=== PATIENT | female | born 1980 | race American Indian/Alaskan Native ===

== ENCOUNTER 2019-05-26 12:54 | Emergency (ER) | payer MEDICAID ==
[2019-05-26 13:01] VITALS: BP 139/92
--- NOTE | 2019-05-26 15:39 | Event Note ---
ED Screening Note Date of service: 05/26/19 Time: 15:37 ED Screening Note: 39 y o f with pmh of lupus presents with pain in throat and painful swelling with fever and lupus flare up This initial assessment/diagnostic orders/clinical plan/treatment(s) is/are subject to change based on patients health status, clinical progression and re- assessment by fellow clinical providers in the ED. Further treatment and workup at subsequent clinical providers discretion. Patient/guardian urged not to elope from the ED as their condition may be serious if not clinically assessed and managed. Initial orders include: rapid strep labs acc evAL
[2019-05-26 16:27] LABS: Basophils % (Auto) 0.3 % (0.0-1.8); Eosinophils # (Auto) 0.2 K/mm3 (0.0-0.4); Eosinophils % (Auto) 2.3 % (0.0-4.3); Hematocrit 32.5 % (30.3-42.9); Hemoglobin 10.6 gm/dl (10.1-14.3); Lymphocytes # (Auto) 2.1 K/mm3 (1.2-5.4); Lymphocytes % (Auto) 24.9 % (13.4-35.0); Mean Corpuscular HGB Conc 33 % (30-34); Mean Corpuscular Volume 77 fl (79-97); Monocytes # (Auto) 0.5 K/mm3 (0.0-0.8); Monocytes % (Auto) 6.1 % (0.0-7.3); Platelet Count 394 K/mm3 (140-440); Red Blood Count 4.22 M/mm3 (3.65-5.03); Red Cell Distribution Width 16.3 % (13.2-15.2)
[2019-05-26] MEDS ORDERED: methylPREDNISolone Sod Succinate 125 MG/2 ML INJ IV ONE (16:29)
[2019-05-26] MEDS ORDERED: FUROSEMIDE 40 MG/4 ML INJ IV ONE (16:29)
[2019-05-26] MEDS ORDERED: LIDOCAINE VISCOUS 2% 15 ML ORAL LIQD PO ONE (16:30)
[2019-05-26 16:51] LABS: BUN/Creatinine Ratio 10; Blood Urea Nitrogen 8 mg/dL (7-17); Calcium 9.4 mg/dL (8.4-10.2); Hemolysis Index 10
--- NOTE | 2019-05-26 16:53 | Emergency Department Report ---
ED ENT HPI - General Chief complaint: Sore Throat Stated complaint: SORE THROAT/LUPUS/STAR Time Seen by Provider: 05/26/19 16:26 Source: patient Mode of arrival: Ambulatory Limitations: No Limitations - History of Present Illness Initial comments: Is a pleasant 39-year-old female who presents the emergency department with a chief complaint of "I think I have strep throat." She has a past medical history of lupus and lymphedema and reports she was unable to take her medications including her torsemide today. She has noticed some swelling to both legs. She denies any chest pain, shortness of breath, chills, nausea, vomiting, diarrhea. She does report she has had a subjective fever. She reports she has had strep throat in the past and this required an epinephrine injection due to swelling in her throat from her lymphedema. She states she is not having difficulty breathing and is able to tolerate her own secretions and is drinking soda at bedside synthesis is difficult. MD complaint: sore throat - Related Data Previous Rx's Medication Instructions Recorded Last Taken Type Amoxicillin [Trimox CAP] 500 mg PO BID #20 capsule 05/26/19 Unknown Rx Nystas/Diphen/Xyl Visc/Mylanta 30 ml MM Q4H PRN #90 ml 05/26/19 Unknown Rx [Magic Mouthwash] methylPREDNISolone [Medrol 4MG 4 mg PO ONCE #1 tab.ds.pk 05/26/19 Unknown Rx DOSEPAK (21 tabs)] Allergies Allergy/AdvReac Type Severity Reaction Status Date / Time No Known Allergies Allergy Verified 05/26/19 16:43 ED Dental HPI - General Chief complaint: Sore Throat Stated complaint: SORE THROAT/LUPUS/STAR Time Seen by Provider: 05/26/19 16:26 Source: patient Mode of arrival: Ambulatory Limitations: No Limitations - Related Data Previous Rx's Medication Instructions Recorded Last Taken Type Amoxicillin [Trimox CAP] 500 mg PO BID #20 capsule 05/26/19 Unknown Rx Nystas/Diphen/Xyl Visc/Mylanta 30 ml MM Q4H PRN #90 ml 05/26/19 Unknown Rx [Magic Mouthwash] methylPREDNISolone [Medrol 4MG 4 mg PO ONCE #1 tab.ds.pk 05/26/19 Unknown Rx DOSEPAK (21 tabs)] Allergies Allergy/AdvReac Type Severity Reaction Status Date / Time No Known Allergies Allergy Verified 05/26/19 16:43 ED Review of Systems ROS: Stated complaint: SORE THROAT/LUPUS/STAR Other details as noted in HPI Comment: All other systems reviewed and negative Constitutional: denies: chills, fever Eyes: denies: eye pain, eye discharge, vision change ENT: as per HPI, throat pain. denies: ear pain Respiratory: denies: cough, shortness of breath, wheezing Cardiovascular: denies: chest pain, palpitations Endocrine: no symptoms reported Gastrointestinal: denies: abdominal pain, nausea, diarrhea Genitourinary: denies: urgency, dysuria, discharge Musculoskeletal: denies: back pain, joint swelling, arthralgia Skin: denies: rash, lesions Neurological: denies: headache, weakness, paresthesias Psychiatric: denies: anxiety, depression Hematological/Lymphatic: denies: easy bleeding, easy bruising ED Past Medical Hx - Past Medical History Previous Medical History?: Yes Additional medical history: Lupus, lymphodema - Surgical History Past Surgical History?: Yes Additional Surgical History: C section. Hernia repair - Social History Smoking Status: Never Smoker Substance Use Type: None - Medications Home Medications: Home Medications Medication Instructions Recorded Confirmed Last Taken Type Amoxicillin [Trimox CAP] 500 mg PO BID #20 capsule 05/26/19 Unknown Rx Nystas/Diphen/Xyl Visc/Mylanta 30 ml MM Q4H PRN #90 ml 05/26/19 Unknown Rx [Magic Mouthwash] methylPREDNISolone [Medrol 4MG 4 mg PO ONCE #1 tab.ds.pk 05/26/19 Unknown Rx DOSEPAK (21 tabs)] ED Physical Exam - General Limitations: No Limitations General appearance: alert, in no apparent distress - Head Head exam: Present: atraumatic, normocephalic - Eye Eye exam: Present: normal appearance, PERRL, EOMI Pupils: Present: normal accommodation - ENT ENT exam: Present: normal exam, mucous membranes moist. Absent: normal orophraynx (mild erythema in the posterior pharynx with some mild tonsillar enlargement. No peritonsillar bulging, retropharyngeal bulging or tongue elevation. No dysphonia or drooling. Drinking a bottle of Sprite at the bedside.) - Neck Neck exam: Present: normal inspection, full ROM. Absent: tenderness, meningismus - Respiratory Respiratory exam: Present: normal lung sounds bilaterally. Absent: respiratory distress, wheezes, rales, rhonchi, stridor - Cardiovascular Cardiovascular Exam: Present: regular rate, normal rhythm, normal heart sounds. Absent: systolic murmur, diastolic murmur, rubs, gallop - GI/Abdominal GI/Abdominal exam: Present: soft, normal bowel sounds. Absent: distended, tenderness, guarding, rebound, rigid - Extremities Exam Extremities exam: Present: normal inspection, full ROM, normal capillary refill, pedal edema (trace pedal edema, no pitting edema.). Absent: tenderness, calf t enderness (negative Homans sign bilaterally.) - Back Exam Back exam: Present: normal inspection - Neurological Exam Neurological exam: Present: alert, oriented X3 - Psychiatric Psychiatric exam: Present: normal affect, normal mood - Skin Skin exam: Present: warm, dry, intact, normal color. Absent: rash ED Course Vital Signs 05/26/19 13:00 Temperature 98.9 F Pulse Rate 93 H Respiratory 16 Rate Blood Pressure 139/92 O2 Sat by Pulse 96 Oximetry - Reevaluation(s) Reevaluation #1: 05/26/19 18:56 Patient was given IV steroids and IV Lasix and felt much better. She has been urinating a lot and reports that the swelling has improved significantly. On my reevaluation she was eating and drinking at the bedside stated she felt much muc h better. She wanted to go home. ED Medical Decision Making - Lab Data Result diagrams: 05/26/19 16:07 05/26/19 16:07 - Medical Decision Making Patient present in the emergency department with sore throat and sensation of swelling in her throat. She has had similar symptoms in the past secondary to h er lymphedema. She reports she had not been able to take her medication today due to this throat pain. She was given a dose of Lasix IV as well as IV steroids and reported significant relief in her symptoms. She at no point had any oropharyngeal swelling, airway compromise, stridor, increased work of breathing, or any other symptoms that would indicate anaphylaxis or angioedema. She does have a history of lymphedema and reports this feels similar. She felt much better and was observed in the ER for a few hours and felt that her symptoms had improved significantly. I will discharge her in stable condition with Medrol Dosepak, Magic mouthwash and antibiotics for suspected tonsillitis. She is instructed to follow-up with her primary care doctor tomorrow or return to the ER with any changing or worsening symptoms. - Differential Diagnosis tonsillitis, pharyngitis, allergic reaction Critical care attestation.: If time is entered above; I have spent that time in minutes in the direct care of this critically ill patient, excluding procedure time. ED Disposition Clinical Impression: Acute tonsillitis Qualifiers: Pharyngitis/tonsillitis etiology: unspecified etiology Qualified Code(s): J03.90 - Acute tonsillitis, unspecified Disposition: TO HOME OR SELFCARE Is pt being admited?: No Condition: Stable Instructions: Tonsillitis (ED) Prescriptions: Nystas/Diphen/Xyl Visc/Mylanta [Magic Mouthwash] 30 ml MM Q4H PRN #90 ml PRN Reason: Pain , Severe (7-10) methylPREDNISolone [Medrol 4MG DOSEPAK (21 tabs)] 4 mg PO ONCE #1 tab.ds.pk Amoxicillin [Trimox CAP] 500 mg PO BID #20 capsule Referrals: PATRICK NGUYEN MD [Primary Care Provider] - 3-5 Days Forms: Work/School Release Form(ED) Time of Disposition: 19:01
== END 2019-05-26 19:14 | disposition home or self-care (01) ==
LOC: ED 12:54
DX: J03.90 Acute tonsillitis, unspecified (principal); Z98.890 Other specified postprocedural states; Z79.2 Long term (current) use of antibiotics; Z79.899 Other long term (current) drug therapy
CPT/HCPCS: 36415; 80048; 85025; 87116; 87430; 96374; 96375; 99284; J1940; J2930

== ENCOUNTER 2021-05-11 19:24 | Emergency (ER) | payer OTHER ==
[2021-05-11] MEDS ORDERED: IPRATROPIUM 0.02% NEBU 2.5 ML IH ONE (19:56)
[2021-05-11] MEDS ORDERED: ALBUTEROL 2.5 MG/3 ML NEBU IH ONE ×2 (19:56→23:22)
[2021-05-11] MEDS ORDERED: methylPREDNISolone ACETATE 80 MG/1 ML INJ IM ONE (19:56)
--- NOTE | 2021-05-11 20:01 | Emergency Department Report ---
<TAD PACE S - Last Filed: 05/12/21 01:22> ED Shortness of Breath HPI - General Chief Complaint: Dyspnea/Respdistress Stated Complaint: STAR Time Seen by Provider: 05/11/21 19:37 - Related Data Previous Rx's Medication Instructions Recorded Last Taken Type Nystas/Diphen/Xyl Visc/Mylanta 30 ml MM Q4H PRN #90 ml 05/26/19 Unknown Rx [Magic Mouthwash] methylPREDNISolone [Medrol 4MG 4 mg PO ONCE #1 tab.ds.pk 05/11/21 Unknown Rx DOSEPAK (21 tabs)] Albuterol Mdi (or & Nicu Only) 2 puff IH QID PRN #8.5 gram 05/12/21 Unknown Rx [ProAir HFA Inhaler] Amoxicillin/Potassium Clav 1 each PO BID #14 tab 05/12/21 Unknown Rx [Augmentin 875-125 Tablet] Allergies Allergy/AdvReac Type Severity Reaction Status Date / Time No Known Allergies Allergy Verified 05/26/19 16:43 ED Past Medical Hx - Medications Home Medications: Home Medications Medication Instructions Recorded Confirmed Last Taken Type Nystas/Diphen/Xyl Visc/Mylanta 30 ml MM Q4H PRN #90 ml 05/26/19 Unknown Rx [Magic Mouthwash] methylPREDNISolone [Medrol 4MG 4 mg PO ONCE #1 tab.ds.pk 05/11/21 Unknown Rx DOSEPAK (21 tabs)] Albuterol Mdi (or & Nicu Only) 2 puff IH QID PRN #8.5 gram 05/12/21 Unknown Rx [ProAir HFA Inhaler] Amoxicillin/Potassium Clav 1 each PO BID #14 tab 05/12/21 Unknown Rx [Augmentin 875-125 Tablet] ED Medical Decision Making - Radiology Data Radiology results: report reviewed CHEST 1 VIEW 05/11/2021 9:02 PM INDICATION / CLINICAL INFORMATION: cough, sob. COMPARISON: None available. FINDINGS: SUPPORT DEVICES: None. HEART / MEDIASTINUM: No significant abnormality. LUNGS / PLEURA: Bilateral patchy airspace opacities, most confluent within the left lung. No pneumothorax. ADDITIONAL FINDINGS: No significant additional findings. IMPRESSION: 1. Bilateral patchy airspace opacities concerning for multifocal pneumonia. - Medical Decision Making This patient was signed out to me to do a reevaluation after the patient received a continuous breathing treatment. Based on my colleagues charting, the patient appeared to have some mild respiratory distress and bronchospasm. At the time of my reevaluation the wheezing has greatly decreased and the patient does not appear in any respiratory distress. She felt very jittery after the 10 mg of albuterol but otherwise says that she is feeling somewhat improved. The patient had a 2-minute ambulatory pulse ox test and maintain an oxygen saturation of 97 to 99%. When she was done, she had a slight increase in her work of breathing but did not return to having signs of respiratory distress. Patient was given another 5 mg of albuterol as she complained of feeling "tight", but once again after reevaluation she is clinically improved. The patient's chest x-ray shows bilateral patchy opacities. This is different than the patient's report from the urgent care stating that she had a left lower quadrant pneumonia. As the patient is not vaccinated for COVID-19, the patient is at least a moderate suspicion for COVID-19. We are unable to test the patient for COVID-19 [id number] through the emergency department. She does not have any hypoxia, I do not feel that the patient needs to be admitted to the hospital for the suspected COVID-19 infection and what appears to be an exacerbation of her asthma. We discussed seeking outpatient COVID-19 testing. She has been given a prescription for steroids, albuterol inhaler, and antibiotics. She will return to the emergency department with any worsening of her symptoms or with any acute distress. Critical Care Time: No ED Disposition Clinical Impression: Suspected 2019 novel coronavirus infection, Bilateral pneumonia Asthma exacerbation Qualifiers: Asthma severity: mild Asthma persistence: intermittent Qualified Code(s): J45.21 - Mild intermittent asthma with (acute) exacerbation Disposition: 01 HOME / SELF CARE / HOMELESS Is pt being admited?: No Condition: Stable Instructions: Asthma, Adult, Bronchospasm, Adult, Community-Acquired Pneumonia, Adult, Bacterial Pneumonia (ED) Additional Instructions: Please follow-up with your primary care physician. Given the chest x-ray findings of pneumonia, and your upper respiratory type symptoms, I have concern that you could have contracted COVID-19. Unfortunately we are unable to test you for it through the emergency department. I do recommend seeking outpatient COVID-19 testing. This can be done at some primary care offices, some urgent cares, and there should be a listing of testing facilities through the [place] [facility]. Take all medications as prescribed. Return to the emergency department with any worsening of your symptoms, new or concerning symptoms not addressed during this current emergency department visit, or with any acute distress. Prescriptions: Amoxicillin/Potassium Clav [Augmentin 875-125 Tablet] 1 each PO BID #14 tab methylPREDNISolone [Medrol 4MG DOSEPAK (21 tabs)] 4 mg PO ONCE #1 tab.ds.pk Albuterol Mdi (or & Nicu Only) [ProAir HFA Inhaler] 2 puff IH QID PRN #8.5 gram PRN Reason: Shortness Of Breath Referrals: PRIMARY CARE, [Primary Care Provider] - 2-3 Days Time of Disposition: 00:49 <SAUL MCCARTY - Last Filed: 05/12/21 08:00> ED Shortness of Breath HPI - General Source: patient Mode of arrival: Ambulatory Limitations: No Limitations - History of Present Illness Initial Comments: Patient presents with difficulty breathing. She was having shortness of breath along with a cough. Patient was seen at urgent care and diagnosed with pneumonia. She states that she had pneumonia in the left lung. She was told to come here. She states that her throat feels tight. She has had subjective fevers and chills. She feels short of breath. She has been using her inhalers for her asthma. She states that her asthma does not really seem to be acting up although she does feel slightly short of breath. Patient has not been admitted to the hospital in a long time due to asthma. She is never been intubated. Patient has not been around anybody with coronavirus. She was told that she only has pneumonia on 1 side, not both sides. ED Review of Systems ROS: Stated complaint: STAR Other details as noted in HPI Comment: All other systems reviewed and negative Constitutional: fever Eyes: denies: vision change ENT: as per HPI Respiratory: see HPI Cardiovascular: denies: chest pain Endocrine: denies: unexplained weight loss Gastrointestinal: denies: abdominal pain Genitourinary: denies: dysuria Musculoskeletal: denies: back pain Skin: denies: rash Neurological: denies: headache Hematological/Lymphatic: denies: easy bruising ED Past Medical Hx - Past Medical History Previous Medical History?: Yes Hx Asthma: Yes Additional medical history: Lupus, lymphodema - Surgical History Past Surgical History?: Yes Additional Surgical History: C section. Hernia repair - Family History Family history: asthma - Social History Smoking Status: Never Smoker Substance Use Type: None ED Physical Exam - General Limitations: No Limitations, Other (Pulse ox noted and hypoxic. This improves with treatment.) General appearance: alert, in no apparent distress - Head Head exam: Present: atraumatic, normocephalic - Eye Eye exam: Present: normal appearance, EOMI. Absent: scleral icterus - ENT ENT exam: Present: normal external ear exam, other (Diffuse pharyngeal erythema without exudate) - Neck Neck exam: Present: normal inspection. Absent: meningismus - Respiratory Respiratory exam: Present: respiratory distress (Mild), wheezes (Bilateral) - Cardiovascular Cardiovascular Exam: Present: regular rate, normal rhythm - GI/Abdominal GI/Abdominal exam: Present: soft. Absent: tenderness - Extremities Exam Extremities exam: Present: normal capillary refill. Absent: pedal edema, calf tenderness - Back Exam Back exam: Absent: CVA tenderness (R), CVA tenderness (L) - Neurological Exam Neurological exam: Present: alert, oriented X3, CN II-XII intact, normal gait. Absent: motor sensory deficit - Psychiatric Psychiatric exam: Present: normal affect, normal mood - Skin Skin exam: Present: warm, dry ED Course Vital Signs 05/11/21 05/11/21 05/11/21 19:26 20:30 23:52 Temperature 99.5 F Pulse Rate 58 L Pulse Rate [ 108 H 90 Bilateral Throughout] Respiratory 16 Rate Respiratory 24 18 Rate [Bilateral Throughout] Blood Pressure 135/95 Blood Pressure [Right] O2 Sat by Pulse 92 Oximetry 05/12/21 01:41 Temperature Pulse Rate 88 Pulse Rate [ Bilateral Throughout] Respiratory 17 Rate Respiratory Rate [Bilateral Throughout] Blood Pressure Blood Pressure 134/89 [Right] O2 Sat by Pulse 97 Oximetry - Reevaluation(s) Reevaluation #1: 05/11/21 20:00 Continuous albuterol neb was started. Old records reviewed. Depo-Medrol was ordered. Critical Care Time: No Critical care attestation.: If time is entered above; I have spent that time in minutes in the direct care of this critically ill patient, excluding procedure time. ED Disposition Is pt being admited?: No
[2021-05-11] MEDS ORDERED: methylPREDNISolone Sod Succinate 40 MG/1 ML INJ IV ONE (21:00)
--- NOTE | 2021-05-11 22:10 | XRay Report ---
CHEST 1 VIEW 05/11/2021 9:02 PM INDICATION / CLINICAL INFORMATION: cough, sob. COMPARISON: None available. FINDINGS: SUPPORT DEVICES: None. HEART / MEDIASTINUM: No significant abnormality. LUNGS / PLEURA: Bilateral patchy airspace opacities, most confluent within the left lung. No pneumoth orax. ADDITIONAL FINDINGS: No significant additional findings. IMPRESSION: 1. Bilateral patchy airspace opacities concerning for multifocal pneumonia. Signer Name: Boom House DO Signed: 05/11/2021 10:06 PM Workstation Name: [id number]
[2021-05-12 01:49] VITALS: BP 134/89
== END 2021-05-12 01:50 | disposition home or self-care (01) ==
LOC: ED 19:24
DX: Z20.822 Contact with and (suspected) exposure to COVID-19 (principal); J18.9 Pneumonia, unspecified organism; J45.901 Unspecified asthma with (acute) exacerbation; I89.0 Lymphedema, not elsewhere classified; Z98.890 Other specified postprocedural states
CPT/HCPCS: 71045; 94640; 94644; 96374; 99283; J1040; J2920